=== PATIENT | male | born 1965 | race African-American/Black ===

== ENCOUNTER 2020-04-24 02:00 | Emergency (ER) | payer OTHER ==
[~2020-04-24] VITALS: Ht 180.3 cm; Wt 131.5 kg
[2020-04-24] MEDS ORDERED: LISINOPRIL-HCT1 EAC2 PO (02:05)
[2020-04-24] MEDS ORDERED: NEURONTIN 300M300 M2 PO (02:05)
[2020-04-24 03:04] LABS: ANION GAP 10 mmol/L (7-16); BUN 22 mg/dL (7-18); CALCIUM 8.3 mg/dL (8.5-10.1); CHLORIDE 108 mmol/L (98-107); CO2 25 mmol/L (21-32); CREATININE 0.9 mg/dL (0.7-1.3); GLUCOSE 106 mg/dL (74-106); POTASSIUM 4.3 mmol/L (3.5-5.1); SODIUM 143 mmol/L (136-145)
[2020-04-24 03:05] LABS: ABSOLUTE NEUTROPHILS 2.8 thou/uL (1.4-8.2); BASOPHILS 0.2 % (0.0-2.0); EOSINOPHILS 2.5 % (0.0-3.0); HEMATOCRIT 42.9 % (42.0-52.0); HEMOGLOBIN 14.4 gm/dL (14.0-18.0); LYMPHOCYTES 43.3 % (24.0-44.0); MCH 32.2 pg (26.0-34.0); MCHC 33.6 g/dL (28.0-37.0); MCV 95.7 fL (80.0-100.0); MONOCYTES 10.2 % (1.0-8.0); PLATELET COUNT 228 thou/uL (150-400); POLYS 43.8 % (36.0-66.0); RBC 4.48 mil/uL (4.50-6.00); RDW 14.8 % (10.5-14.5); WBC 6.3 thou/uL (4.0-11.0)
[2020-04-24 03:14] LABS: ALBUMIN 3.2 g/dL (3.4-5.0); SGOT 19 U/L (15-37); SGPT 22 U/L (30-65); TOTAL BILIRUBIN 0.2 mg/dL (0.2-1.0); TOTAL PROTEIN 6.4 g/dL (6.4-8.2); TROPONIN-I <0.06 ng/mL (<0.06)
[2020-04-24] MEDS ORDERED: GUAIFEN-CODEINE10 ML PO (03:34)
[2020-04-24 03:46] VITALS: BP 172/103
--- NOTE | 2020-04-25 16:01 | EKG ---
Formerly [facility] [address] [place] [address] ELECTROCARDIOGRAM REPORT Name: NIKO RICARDO Room #: DEP [facility].#: [id number] Admission: 04/24/20 Attend Phys: Discharge: 04/24/20 Date of : 67 Report #: [id number] THIS REPORT FOR: cc: FAM - No family physician/PCP FAM - No family physician/PCP Kenyon Hillman MD ~ THIS REPORT FOR: //name// [facility]ly [facility] ED Test Date: 2020-04-24 Test Time: 02:39:02 Pat Name: NIKO RICARDO Department: Room: Gender: Paperboard Machine Operator: : 1965 Requested By: Antonio Berger Order Number: [id number] MD: Kenyon Hillman Measurements Intervals Bouse Rate: 70 P: 53 MN: 189 QRS: 40 QRSD: 81 T: 26 QT: 388 QTc: 419 Interpretive Statements Sinus rhythm No previous ECG available for comparison Electronically Signed On 04-25-2020 16:01:23 CDT by Kenyon Hillman [email or web address] <ELECTRONICALLY SIGNED> By: Kenyon Hillman MD 04/25/20 1601 [id number] Kenyon Hillman MD /LUZ MARIA
== END 2020-04-24 03:56 | disposition home or self-care (01) ==
LOC: ER 02:00
PROVIDERS: Emergency Medicine
DX: R05 Cough (principal); Z20.828 Contact with and (suspected) exposure to other viral communicable diseases; R53.1 Weakness; R07.89 Other chest pain; R19.7 Diarrhea, unspecified; R43.8 Other disturbances of smell and taste; I10 Essential (primary) hypertension; Z79.899 Other long term (current) drug therapy

== ENCOUNTER → 2020-05-22 | Outpatient (CLI) | payer OTHER ==
[~2020-05-22] MED LIST: GUAIFEN-CODEINE10 ML PO; LISINOPRIL-HCT1 EAC2 PO; NEURONTIN 300M300 M2 PO
[2020-05-22 16:14] LABS: CREATININE 0.8 mg/dL (0.7-1.3)
== END ==
LOC: LAB 15:27
PROVIDERS: ATTEND Nurse Practitioner
DX: J18.1 Lobar pneumonia, unspecified organism (principal); J98.4 Other disorders of lung

== ENCOUNTER → 2020-06-28 | Outpatient (CLI) | payer OTHER | LOC: MRI 13:50 | PROVIDERS: ATTEND Nurse Practitioner | DX: M51.36 Other intervertebral disc degeneration, lumbar region (principal); G89.29 Other chronic pain; M25.78 Osteophyte, vertebrae; M47.817 Spondylosis without myelopathy or radiculopathy, lumbosacral region; M48.07 Spinal stenosis, lumbosacral region ==